=== PATIENT | female | born 1995 | race Caucasian/White ===

== ENCOUNTER 2021-07-21 13:56 | Outpatient (CLI) | payer BC | END 2021-07-21 13:57 | disposition home or self-care (01) | LOC: SCSRAD 13:56 | PROVIDERS: ATTEND Internal Medicine Rheumatology | DX: M46.1 Sacroiliitis, not elsewhere classified (principal) | CPT/HCPCS: 72202 ==

== ENCOUNTER 2021-07-30 11:03 | Outpatient (CLI) | payer BC | END 2021-07-30 11:04 | disposition home or self-care (01) | LOC: BICRAD 11:03 | PROVIDERS: ATTEND Internal Medicine Rheumatology | DX: R76.12 Nonspecific reaction to cell mediated immunity measurement of gamma interferon antigen response without active tuberculosis (principal); M25.50 Pain in unspecified joint | CPT/HCPCS: 71046 ==